=== PATIENT | male | born 1950 | race Caucasian/White ===

== ENCOUNTER 2022-10-09 06:23 | Day surgery (SDC) | payer MEDICARE, SELFPAY ==
--- NOTE | 2022-10-08 10:41 | P.CONAN_ITS ---
Documented by User: Siobhan Navraro NP 10/08/22 10:41 HPI - Anesthesia Eval Consult details Narrative: 72yo M for Colonoscopy [facility] Past Medical History Medical History (Updated 10/08/22 @ 09:45 by Gill Tijerina RN) BPH (benign prostatic hyperplasia) Elevated cholesterol HTN (hypertension) Murmur Surgical History Surgical History (Updated 10/08/22 @ 09:46 by Gill Tijerina RN) Hx of colonoscopy Hx of shoulder surgery Social History Social History Patient Tobacco Use Status: Never used Tobacco Are you DNR?: No Advance Directives: No Advance Directives Information Provided: Yes Meds Allergies Allergy/AdvReac Type Severity Reaction Status Date / Time No Known Allergies [NKA] Allergy Unverified 01/18/20 14:35 Home Medications Medication Instructions Recorded Confirmed Last Taken Type fosinopril 20 mg tablet 20 mg PO DAILY 10/08/22 10/08/22 10/07/22 History hydrochlorothiazide 12.5 mg capsule 12.5 mg PO DAILY 10/08/22 10/08/22 10/06/22 History simvastatin 40 mg tablet 40 mg PO QAM 10/08/22 10/08/22 10/08/22 History tamsulosin 0.4 mg capsule 0.4 mg PO DAILY 10/08/22 10/08/22 10/06/22 History Exam Exam Date and Time: October 08, [id number] Assessment and Plan Assessment Anesthesia Assessment: Chart Reviewed Documented by User: Stacy Hernadez MD 10/09/22 08:04 [facility] Past Medical History Medical History (Updated 10/08/22 @ 09:45 by Gill Tijerina RN) BPH (benign prostatic hyperplasia) Elevated cholesterol HTN (hypertension) Murmur Family History Family history of problems with anesthesia: No Surgical History Surgical History (Updated 10/08/22 @ 09:46 by Gill Tijerina RN) Hx of colonoscopy Hx of shoulder surgery History of Problems with Anesthesia: No Social History Social History Patient Tobacco Use Status: Never used Tobacco Are you DNR?: No Advance Directives: No Advance Directives Information Provided: Yes Meds Allergies Allergy/AdvReac Type Severity Reaction Status Date / Time No Known Allergies [NKA] Allergy Unverified 01/18/20 14:35 Home Medications Medication Instructions Recorded Confirmed Last Taken Type fosinopril 20 mg tablet 20 mg PO DAILY 10/08/22 10/08/22 10/07/22 History hydrochlorothiazide 12.5 mg capsule 12.5 mg PO DAILY 10/08/22 10/08/22 10/06/22 History simvastatin 40 mg tablet 40 mg PO QAM 10/08/22 10/08/22 10/08/22 History tamsulosin 0.4 mg capsule 0.4 mg PO DAILY 10/08/22 10/08/22 10/06/22 History Exam Airway Mallampati Class: I TM Dist: >3cm Neck ROM: Full Loose/Missing/Broken Teeth: No Heart: rr Lungs: cta Assessment and Plan Assessment Anesthesia Assessment: Anesthesia Plan Discussed Final Anesthetic Review Family History of Problems with Anesthesia: No History of Problems with Anesthesia: No NPO: Yes ASA Class: II Final Preanesthetic Review: No Changes in Pt Med Stat, Meds/Allgs Chart Reviewed, Consent Obtained/Reviewed and Anes Risks/Benef Reviewed Patient Risk: Low Procedure Risk: Low Anesthetic Plan Anesthetic Plan: MAC: Disposition: Standard PACU
[2022-10-09 05:53] VITALS: BMI 37.8
[2022-10-09 06:29] VITALS: BP 145/76; PULSE 64; RESP 18; TEMP 36.8; O2SAT 98
[2022-10-09] MEDS: Lactated Ringers 1,000 ML 100 ML IVCONT (06:49)
[2022-10-09 07:26] VITALS: BMI 37.8
--- NOTE | 2022-10-09 08:35 | P.BOP_ITS ---
Brief Operative Note Date of Service: 10/09/22 Pre-op diagnosis: Screening Post-op diagnosis: other (Polyp) Procedure: Colonoscopy to the cecum with bx/removal of polyp Surgeon: Lei Wade Anesthesia: MAC Was an Reducing Salon Attendant used for this Procedure?: No Estimated blood loss (mL): 2.0 Pathology: other (A. Ascending colon polyp) Condition: stable Disposition: PACU
[2022-10-09 08:36] VITALS: BP 133/37; PULSE 60; RESP 16; TEMP 36.1; O2SAT 94
[2022-10-09 08:51] VITALS: BP 132/67; PULSE 60; RESP 16; TEMP 36.6; O2SAT 98
--- NOTE | 2022-10-09 09:36 | OP_ITS ---
DATE OF SERVICE: 10/09/2022 SURGEON: Lei Wade MD INDICATIONS: The patient presents for evaluation of colorectal cancer screening. Full consent has been obtained from him for this, including risks of bleeding and perforation. PREOPERATIVE DIAGNOSIS: Colorectal cancer screening. POSTOPERATIVE DIAGNOSIS: PROCEDURE PERFORMED: Colonoscopy to the cecum with biopsy and removal of polyp. ESTIMATED BLOOD LOSS: COMPLICATIONS: ANESTHESIA: Monitored anesthesia care. ASSISTANTS: SPECIMENS: POSTOPERATIVE DIAGNOSES: Colorectal cancer screening, small colon polyp, diverticulosis, and internal hemorrhoids. DESCRIPTION OF PROCEDURE: The patient was placed in the left lateral decubitus position. The digital rectal exam revealed no abnormalities. The Olympus video pediatric colonoscope was entered into the rectum and advanced easily to the cecum. Once in the cecum, I did identify normal-appearing cecal pouch with appendiceal orifice and a normal-appearing ileocecal valve. The entire cecum was well visualized and appeared normal without any sign of mass or ulceration. The appendiceal orifice appeared normal. The scope was then slowly withdrawn assessing all mucosal surfaces carefully. Preparation was excellent. In the proximal ascending colon was a flat approximately 4 mm polyp, which was biopsied and completely removed with a cold biopsy forceps. I did not visualize any other polyps, colitis, nor angiodysplasia. There was a mild amount of sigmoid diverticulosis. In the rectum, scope was retroflexed visualizing internal hemorrhoids, but no other pathology. The rectal mucosa appeared normal. The scope was straightened and withdrawn from the patient. He tolerated the procedure well and was returned to the recovery area in stable condition. IMPRESSION: 1. Small colon polyp. 2. Diverticulosis. 3. Internal hemorrhoids. PLAN: The results of the biopsies will be checked. If this is a tubular adenoma, we could theoretically repeat a colonoscopy in 5 years for further screening and surveillance. At that point he will be close 78 years old and we would need to take his clinical condition into account. If the polyp is only hyperplastic then I do not think he would need any further screening colonoscopies. He was advised not to use any aspirin or NSAIDs for 1 week. This has been discussed with his . MD JODI Abdul/RHEA / [id number] [facility]
== END 2022-10-09 09:15 | disposition home or self-care (01) ==
PROVIDERS: PCP Internal Medicine; Visit Provider Internal Medicine
PROC: 0DJD8ZZ Inspection of Lower Intestinal Tract, Via Natural or Artificial Opening Endoscopic (ICD-10-PCS; CPT 45378; principal; 2022-10-09 07:30)
DX: Z12.11 Encounter for screening for malignant neoplasm of colon (principal); D12.2 Benign neoplasm of ascending colon; K57.30 Diverticulosis of large intestine without perforation or abscess without bleeding; K64.8 Other hemorrhoids; I10 Essential (primary) hypertension; E78.5 Hyperlipidemia, unspecified; N40.0 Benign prostatic hyperplasia without lower urinary tract symptoms; I35.8 Other nonrheumatic aortic valve disorders; Z79.899 Other long term (current) drug therapy
CPT/HCPCS: 45380; 88305